=== PATIENT | female | born 1965 | race American Indian/Alaskan Native ===

== ENCOUNTER 2021-04-07 11:22 | Emergency (ER) | payer BC, OTHER ==
[~2021-04-07] VITALS: Ht 160 cm; Wt 135.0 kg
[~2021-04-07 11:22] MED LIST: LISI10TA27 PO; PER10325T PO
[2021-04-07] MEDS ORDERED: dexamethasone sod phosphate 10mg/ml inj PO STA (11:42)
[2021-04-07 12:13] LABS: BASOPHILS % (AUTO) 0.3 % (0-1); EOSINOPHILS % (AUTO) 0.2 % (0-6); HEMATOCRIT 40.3 % (35.0-45.0); HEMOGLOBIN 13.5 g/dl (12.0-16.0); LYMPHOCYTES # (AUTO) 0.8 X10'3 (1.1-4.8); LYMPHOCYTES % (AUTO) 10.9 % (21-51); MEAN CORPUSCULAR HEMOGLOBIN 26.7 PG (27.0-31.0); MEAN CORPUSCULAR HGB CONC 33.4 g/dL (33.0-36.5); MEAN PLATELET VOLUME 8.3 FL (7.4-10.4); MONOCYTES # (AUTO) 0.1 X10'3 (0-0.9); MONOCYTES % (AUTO) 2.1 % (2-12); NEUTROPHILS # (AUTO) 6.2 X10'3 (1.8-7.7); NEUTROPHILS % (AUTO) 86.5 % (42-75); PLATELET COUNT 262 X10'3 (140-440); RED BLOOD COUNT 5.04 X10'6 (4.20-5.60); RED CELL DISTRIBUTION WIDTH 14.8 % (11.5-14.5); WHITE BLOOD COUNT 7.2 X10'3 (4.5-11.0)
[2021-04-07 12:18] LABS: D-DIMER 2.31 MG/L FEU (0-0.50)
[2021-04-07 12:27] LABS: ALANINE AMINOTRANSFERASE 45 U/L (12-78); ALBUMIN 3.2 G/DL (3.4-5.0); ALBUMIN/GLOBULIN RATIO 0.7 (1.1-1.5); ALKALINE PHOSPHATASE 87 IU/L (46-116); ANION GAP 11 (8-16); ASPARTATE AMINO TRANSFERASE 47 U/L (10-37); BILIRUBIN,TOTAL 0.4 MG/DL (0.1-1.0); BLOOD UREA NITROGEN 12 MG/DL (7-18); BUN/CREATININE RATIO 11.8 (6.6-38.0); CALCIUM 8.9 MG/DL (8.5-10.1); CHLORIDE 100 MMOL/L (99-107); CREATININE 1.02 MG/DL (0.40-0.90); GLUCOSE 169 MG/DL (70-104); POTASSIUM 4.2 MMOL/L (3.5-5.1); SODIUM 138 MMOL/L (135-145); TOTAL CARBON DIOXIDE 27.4 MMOL/L (24-32); TOTAL PROTEIN 7.9 G/DL (6.4-8.2); eGFR 56 ML/MIN
[2021-04-07 12:29] LABS: TROPONIN I < 0.04 NG/ML (0.0-0.05)
[2021-04-07] MEDS ORDERED: CASIRIVIMAB/IMDEVIMAB inject. 10 ML in normal saline 100ml IV soln 100 ML IV ONE (12:45)
[2021-04-07] MEDS ORDERED: OXYGEN NASALCANN (12:50)
[2021-04-07] MEDS ORDERED: BUDE180A INH (12:51)
[2021-04-07] MEDS ORDERED: ALBU8.5H17 IH (13:16)
[2021-04-07 15:00] VITALS: BP 151/74
[2021-04-07] MEDS ORDERED: iohexol 350MG/ML 100ml bottle IV ONE (15:16)
== END 2021-04-07 17:29 | disposition home or self-care (01) ==
LOC: ER 11:22
DX: U07.1 COVID-19 (principal); J12.82 Pneumonia due to coronavirus disease 2019; E11.9 Type 2 diabetes mellitus without complications; I10 Essential (primary) hypertension; Z88.2 Allergy status to sulfonamides; Z79.899 Other long term (current) drug therapy
CPT/HCPCS: 36415; 71045; 71275; 80053; 84145; 84484; 85025; 85379; 99285; J1100; M0243; Q0244; Q9967

== ENCOUNTER 2021-05-19 06:40 | Day surgery (SDC) | payer OTHER ==
[2021-05-13 14:54] LABS: BASOPHILS # (AUTO) 0.1 X10'3 (0-0.2); BASOPHILS % (AUTO) 1.2 % (0-1); EOSINOPHILS # (AUTO) 0.5 X10'3 (0-0.9); EOSINOPHILS % (AUTO) 6.1 % (0-6); LYMPHOCYTES # (AUTO) 2.5 X10'3 (1.1-4.8); LYMPHOCYTES % (AUTO) 27.9 % (21-51); MEAN CORPUSCULAR HEMOGLOBIN 27.2 PG (27.0-31.0); MEAN CORPUSCULAR HGB CONC 33.7 g/dL (33.0-36.5); MEAN CORPUSCULAR VOLUME 80.8 FL (78-98); MEAN PLATELET VOLUME 7.6 FL (7.4-10.4); MONOCYTES # (AUTO) 0.6 X10'3 (0-0.9); MONOCYTES % (AUTO) 6.5 % (2-12); NEUTROPHILS # (AUTO) 5.2 X10'3 (1.8-7.7); NEUTROPHILS % (AUTO) 58.3 % (42-75); PRE OP HEMATOCRIT 37.9 % (35.0-45.0); PRE OP HEMOGLOBIN 12.8 g/dL (12.0-16.0); PRE OP PLATELET COUNT 346 X10'3 (140-440); RED CELL DISTRIBUTION WIDTH 15.9 % (11.5-14.5)
[2021-05-13 15:08] LABS: ALBUMIN 3.7 G/DL (3.4-5.0); ALBUMIN/GLOBULIN RATIO 1.1 (1.1-1.5); ALKALINE PHOSPHATASE 82 IU/L (46-116); BLOOD UREA NITROGEN 14 MG/DL (7-18); BUN/CREATININE RATIO 14.7 (6.6-38.0); CHLORIDE 104 MMOL/L (99-107); CREATININE 0.95 MG/DL (0.40-0.90); PRE OP ALT 30 U/L (30-65); PRE OP ANION GAP 11 (8-16); PRE OP AST 14 U/L (10-37); PRE OP BILIRUB, TOTAL 0.4 MG/DL (0.0-1.0); PRE OP POTASSIUM 3.8 MMOL/L (3.4-5.1); PRE OP SODIUM 141 MMOL/L (135-145); TOTAL PROTEIN 7.2 G/DL (6.4-8.2); eGFR 61 ML/MIN
[2021-05-13 15:10] LABS: PRE OP GLUCOSE 161 MG/DL (70-104)
[~2021-05-19] VITALS: Ht 162.6 cm; Wt 139.2 kg
[~2021-05-19 06:40] MED LIST changes: +ASCO500C17 PO; +CETI10TA15 PO; +CHOL100024 PO; +MAGN250T11 PO; +METF-438 PO; +MULT-1085 PO; +NAPR220C15 PO; -PER10325T PO; +SITA50TA PO; +ZINC50TA67 PO; +ceFAZolin inj. 3,000 MG in normal saline 100ml IV soln 100 ML IV ONE; +famotidine 20mg tablet PO ONE; +ringers solution, lacted 1,000 ML IV SCH
[2021-05-19] MEDS ORDERED: BUPIVAcaine 0.5% inj/PF 30 ML ONE (06:54)
[2021-05-19 07:10] VITALS: BP 156/109
[2021-05-19] MEDS ORDERED: LIDOcaine 0.5% (5mg/ml) 50ml vial ONE (08:29)
[2021-05-19] MEDS ORDERED: fentaNYL/PF 50MCG/1 ML 2ML syringe ONE ×2 (09:10→09:23)
[2021-05-19] MEDS ORDERED: MIDAZolam 1 MG/ML 5ML VIAL ONE (09:22)
[2021-05-19] MEDS ORDERED: labetalol 20mg/4ml (5mg/ml) syringe IV ONE (09:32)
[2021-05-19 09:36] VITALS: BP 137/82
--- NOTE | 2021-05-19 09:36 | NUR ---
Received from OR via [facility], accompanied by Anesthesiologist DR. HOLLOWAY and report given by Anesthesiolgist. 20 G TO LEFT AC WITH 100ML/HR LR RUNNING. DRESSIGN TO RIGHT WRIST CDI. DIASTOLIC ELEVATED HOWEVER WITHIN BASELINE OF PREOP BP.
[2021-05-19 09:46] VITALS: BP 157/97
[2021-05-19 09:56] VITALS: BP 157/94
[2021-05-19 10:06] VITALS: BP 157/94
--- NOTE | 2021-05-19 10:06 | NUR ---
PATIENT DISCHARGED HOME WITH FRIEND, RYAN, REPORTS ALL BELONGINGS PRESENT. GIVEN ALL DISCHARGE INSTRUCTIONS. 20G TO LEFT AC DC'D. PATIENT DENIES PAIN. DIASTOLIC LESS THAN PREOP STILL ELEVATED.
[2021-05-19] MEDS ORDERED: BUPIVAcaine 0.5% inj/PF 30 ml vial IJ ONE (11:22)
== END 2021-05-19 10:06 | disposition home or self-care (01) ==
LOC: PAS 06:40
PROVIDERS: ATTEND Orthopaedic Surgery Hand Surgery
DX: G56.01 Carpal tunnel syndrome, right upper limb (principal); E11.9 Type 2 diabetes mellitus without complications; I10 Essential (primary) hypertension; G43.909 Migraine, unspecified, not intractable, without status migrainosus; E66.01 Morbid (severe) obesity due to excess calories; Z68.43 Body mass index [BMI] 50.0-59.9, adult; Z88.2 Allergy status to sulfonamides; Z79.84 Long term (current) use of oral hypoglycemic drugs; Z79.899 Other long term (current) drug therapy; Z98.890 Other specified postprocedural states; Z72.89 Other problems related to lifestyle; Z87.891 Personal history of nicotine dependence
CPT/HCPCS: 29848; 36415; 80053; 82948; 85025; 93005; J0690; J2001; J2250; J3010; Z7506; Z7512; A4215; A7000; J3490; J7120

== ENCOUNTER 2021-06-23 05:16 | Day surgery (SDC) | payer OTHER ==
[2021-06-16 13:37] LABS: BASOPHILS # (AUTO) 0.1 X10'3 (0-0.2); BASOPHILS % (AUTO) 0.7 % (0-1); EOSINOPHILS # (AUTO) 0.6 X10'3 (0-0.9); LYMPHOCYTES # (AUTO) 2.4 X10'3 (1.1-4.8); LYMPHOCYTES % (AUTO) 29.6 % (21-51); MEAN CORPUSCULAR HEMOGLOBIN 26.8 PG (27.0-31.0); MEAN CORPUSCULAR HGB CONC 33.3 g/dL (33.0-36.5); MEAN CORPUSCULAR VOLUME 80.4 FL (78-98); MONOCYTES # (AUTO) 0.5 X10'3 (0-0.9); NEUTROPHILS # (AUTO) 4.6 X10'3 (1.8-7.7); NEUTROPHILS % (AUTO) 56.7 % (42-75); PRE OP HEMOGLOBIN 12.6 g/dL (12.0-16.0); PRE OP PLATELET COUNT 352 X10'3 (140-440); RED BLOOD COUNT 4.72 X10'6 (4.20-5.60); RED CELL DISTRIBUTION WIDTH 15.3 % (11.5-14.5)
[2021-06-16 13:49] LABS: ALBUMIN 3.9 G/DL (3.4-5.0); ALBUMIN/GLOBULIN RATIO 1.1 (1.1-1.5); ALKALINE PHOSPHATASE 82 IU/L (46-116); BLOOD UREA NITROGEN 12 MG/DL (7-18); BUN/CREATININE RATIO 12.9 (6.6-38.0); CALCIUM 9.1 MG/DL (8.5-10.1); CHLORIDE 102 MMOL/L (99-107); CREATININE 0.93 MG/DL (0.40-0.90); PRE OP ALT 33 U/L (30-65); PRE OP ANION GAP 11 (8-16); PRE OP AST 19 U/L (10-37); PRE OP BILIRUB, TOTAL 0.2 MG/DL (0.0-1.0); PRE OP POTASSIUM 4.2 MMOL/L (3.4-5.1); PRE OP SODIUM 141 MMOL/L (135-145); TOTAL CARBON DIOXIDE 27.9 MMOL/L (24-32); TOTAL PROTEIN 7.6 G/DL (6.4-8.2); eGFR 63 ML/MIN
[2021-06-16 13:57] LABS: PRE OP GLUCOSE 227 MG/DL (70-104)
[~2021-06-23] VITALS: Ht 162.6 cm; Wt 142.7 kg
[~2021-06-23 05:16] MED LIST changes: -ceFAZolin inj. 3,000 MG in normal saline 100ml IV soln 100 ML IV ONE; -famotidine 20mg tablet PO ONE
[2021-06-23 05:30] VITALS: BP 160/91
[2021-06-23] MEDS ORDERED: famotidine 20mg tablet PO ONE (05:30)
[2021-06-23] MEDS ORDERED: ceFAZolin inj. 3,000 MG in normal saline 100ml IV soln 100 ML IV ONE (05:30)
[2021-06-23] MEDS ORDERED: BUPIVAcaine/PF 2.5mg/ml (0.25%) 10ml vial ONE ×2 (06:38→06:43)
[2021-06-23] MEDS ORDERED: fentaNYL/PF 50MCG/1 ML 2ML syringe ONE (07:28)
[2021-06-23] MEDS ORDERED: midazolam 1 mg/ML 2ml injection ONE (07:29)
[2021-06-23] MEDS ORDERED: LIDOcaine 0.5% (5mg/ml) 50ml vial ONE (07:41)
[2021-06-23] MEDS ORDERED: propofol inj 20 ML IV ONE (07:41)
[2021-06-23 08:02] VITALS: BP 158/81
--- NOTE | 2021-06-23 08:02 | NUR ---
Received from OR via , accompanied by Anesthesiologist DR LAL and report given by Anesthesiolgist.AWAKENS TO VOICE. VITALS STABLE. DRESSING DI. WILFREDO PAIN. FINGERS WARM AND PINK.
[2021-06-23] MEDS ORDERED: morphine 4 MG/ML inj SYRINge IV PRN (08:10)
[2021-06-23] MEDS ORDERED: meperidine/PF 25mg/ml syringe IV PRN ×3 (08:10)
[2021-06-23] MEDS ORDERED: ondansetron/PF 4mg/2ml inj IV PRN (08:10)
[2021-06-23] MEDS ORDERED: proCHLORperazine 10 MG/2 ml inj IV PRN (08:10)
[2021-06-23] MEDS ORDERED: morphine 2 MG/ML inj. syringe IV PRN (08:10)
[2021-06-23] MEDS ORDERED: ringers solution, lacted 1,000 ML IV SCH (08:10)
[2021-06-23 08:12] VITALS: BP 150/90
[2021-06-23 08:22] VITALS: BP 166/95
[2021-06-23 08:32] VITALS: BP 152/86
--- NOTE | 2021-06-23 08:52 | NUR ---
AWAKE AND ORIENTED. VITALS STABLE. DRESSING DI. WILFREDO PAIN. HOME WITH FRIENDS AT THIS TIME.
== END 2021-06-23 08:52 | disposition home or self-care (01) ==
LOC: PAS 05:16
PROVIDERS: ATTEND Orthopaedic Surgery Hand Surgery
DX: G56.02 Carpal tunnel syndrome, left upper limb (principal); E11.9 Type 2 diabetes mellitus without complications; I10 Essential (primary) hypertension; F17.210 Nicotine dependence, cigarettes, uncomplicated; E66.01 Morbid (severe) obesity due to excess calories; Z68.43 Body mass index [BMI] 50.0-59.9, adult; Z79.899 Other long term (current) drug therapy; Z98.890 Other specified postprocedural states; Z88.2 Allergy status to sulfonamides; Z72.89 Other problems related to lifestyle
CPT/HCPCS: 29848; 36415; 80053; 82948; 85025; J0690; J2250; J2704; J3010; J3490; J7030; J7120; Z7506; Z7512; A4215; A6449; A7000